=== PATIENT | female | born 1990 | race Caucasian/White ===

== ENCOUNTER 2018-08-16 13:35 | Emergency (ER) | payer MEDICAID ==
[~2018-08-16] VITALS: Wt 92.6 kg
[~2018-08-16 13:35] MED LIST: CIPR500T4 PO; CYAN100T PO; HYDR-3601 PO; TAMS-14 PO
[2018-08-16] MEDS ORDERED: KETOROLAC 30 MG INJ IV STA (17:37)
[2018-08-16] MEDS ORDERED: SOD CHLORIDE 0.9% 1,000 ML IV ONE (18:00)
[2018-08-16] MEDS ORDERED: NITR-58 PO (19:18)
[2018-08-16 19:25] VITALS: BP 134/81; PULSE 86; RESP 18
--- NOTE | 2018-08-16 23:38 | ERD ---
ER Documentation Chief Complaint Chief Complaint clinic ref: dysuria, hesitancy x2d. history of kidney stones HPI Patient is a 27-year-old man with a past medical history of hyperlipidemia and nephrolithiasis, presents to the ER for concerns of dysuria and urinary hesitancy times 2 days. Patient is referred to the ER by her provider at the [facility]. Per patient, she has had dysuria, urinary hesitancy and urinary frequency times 2 days. Patient states she was recently admitted for a kidney stone. Patient is not sure if she passed her stone. Post discharge patient was advised to follow-up with urologist however she has not yet. Patient states she was also given ciprofloxacin times 5 days. She states her symptoms are intermittently improved however they started again 2 days ago. Patient denies any fevers, chills, nausea, vomiting, flank/ abdominal pain, chest pain, or LOC. ROS All systems reviewed and are negative except as per history of present illness. Medications Home Meds Active Scripts Nitrofurantoin Monohyd Macrocr* (Macrobid*) 100 Mg Capsr, 100 MG PO BID for 5 Days, CAP Prov:DAVIDE BRAY PA-C 08/16/18 Hydrocodone Bit-Acetaminophen (Hydrocodone Bit-APAP) 5-325MG Tablet, 1 TAB PO Q6H PRN for .MOD PAIN 4-6, #15 TAB Prov:FERNANDEZMACRINA V. SPIRAL MACHINE OPERATOR 08/03/18 Tamsulosin Hcl* (Flomax*) 0.4 Mg Cap.er.24h, 0.4 MG PO BID, #30 CAP Prov:FERNANDEZ,MACRINA V. SPIRAL MACHINE OPERATOR 08/03/18 Ciprofloxacin Hcl* (Ciprofloxacin Hcl*) 500 Mg Tablet, 500 MG PO BID@06,18 for 5 Days, #10 TAB Prov:FERNANDEZGILMAA V. SPIRAL MACHINE OPERATOR 08/03/18 Reported Medications Cyanocobalamin* (Vitamin B12*) 100 Mcg Tab, 100 MCG PO DAILY, TAB 07/31/18 Allergies Allergies: Coded Allergies: No Known Allergy (Unverified , 08/16/18) PMhx/Soc Medical and Surgical Hx: pt denies Surgical Hx History of Surgery: No Anesthesia Reaction: No Hx Neurological Disorder: No Hx Respiratory Disorders: No Hx Cardiac Disorders: No Hx Psychiatric Problems: No Hx Miscellaneous Medical Probl: Yes (kidney stone, HLD) Hx Alcohol Use: No Hx Substance Use: No Hx Tobacco Use: No FmHx Family History: No diabetes, No coronary disease, No other Physical Exam Vitals Vital Signs Date Temp Pulse Resp B/P (MAP) Pulse Ox O2 O2 Flow FiO2 Time Delivery Rate 08/16/18 97.9 86 18 134/81 100 Room Air 19:25 (98) 08/16/18 98.3 101 20 146/84 96 14:25 (104) Physical Exam GENERAL: Well-developed, well-nourished female. Appears in no acute distress. HEAD: Normocephalic, atraumatic. EYES: Pupils are equally reactive bilaterally. EOMs grossly intact. No conjunctival erythema. ENT: Moist mucous membranes. No uvula deviation. No kissing tonsils. NECK: Supple. No meningismus. Normal range of motion of the neck. LUNG: Clear to auscultation bilaterally. No rhonchi, wheezing, rales or coarse breath sounds. HEART: Regular rate and rhythm. No murmurs, rubs or gallops. ABDOMEN: Soft, nontender, and nondistended. Positive bowel sounds in all four quadrants. No rebound tenderness, no guarding. (-) McBurney's point tenderness. No CVA tenderness noted bilaterally. EXTREMITIES: Equal pulses bilaterally. No peripheral clubbing, cyanosis or edema. No unilateral leg swelling. NEUROLOGIC: Alert and oriented. Moving all four extremities without any difficulty. Normal speech. Steady gait. SKIN: Normal color. Warm and dry. No rashes or lesions. Result Diagram: 08/16/18181208/16/181812 Results 24 hrs Laboratory Tests Test 08/16/18 18:13 08/16/18 18:23 White Blood Count 11.3 10^3/ul Red Blood Count 4.86 10^6/ul Hemoglobin 13.5 g/dl Hematocrit 40.9 % Mean Corpuscular Volume 84.2 fl Mean Corpuscular Hemoglobin 27.8 pg Mean Corpuscular Hemoglobin Concent 33.0 g/dl Red Cell Distribution Width 12.5 % Platelet Count 372 10^3/UL Mean Platelet Volume 8.8 fl Immature Granulocytes % 0.400 % Neutrophils % % Segmented Neutrophils % (Manual) 59 % Band Neutrophils % (Manual) 1 % Lymphocytes % % Lymphocytes % (Manual) 31 % Reactive Lymphocytes % (Manual) 2 % Monocytes % % Monocytes % (Manual) 4 % Eosinophils % % Eosinophils % (Manual) 2 % Basophils % % Basophils % (Manual) 1 % Nucleated Red Blood Cells % 0.0 /100WBC Immature Granulocytes # 0.050 10^3/ul Neutrophils # 10^3/ul Neutrophils # (Manual) 6.7 10^3/ul Band Neutrophils # 0.1 10^3/ul Lymphocytes (Manual) 3.5 10^3/ul Lymphocytes # 10^3/ul Reactive Lymphocytes # 0.2 10^3/ul Monocytes # 10^3/ul Monocytes # (Manual) 0.4 10^3/ul Eosinophils # 10^3/ul Basophils # 10^3/ul Basophils # (Manual) 0.1 10^3/ul Nucleated Red Blood Cells # 10^3/ul Platelet Estimate NORMAL Giant Platelets 1 % Poikilocytosis 1+ Anisocytosis 2+ Microcytosis 1+ Urine Color YELLOW Urine Clarity SLIGHTLY CLOUDY Urine pH 5.0 Urine Specific Ten Sleep 1.019 Urine Ketones NEGATIVE mg/dL Urine Nitrite NEGATIVE mg/dL Urine Bilirubin NEGATIVE mg/dL Urine Urobilinogen NEGATIVE mg/dL Urine Leukocyte Esterase 1+ Jannet/ul Urine Microscopic RBC > 182 /HPF Urine Microscopic WBC 17 /HPF Urine Squamous Epithelial Cells MODERATE /HPF Urine Mucus FEW /HPF Urine Hemoglobin 3+ mg/dL Urine Glucose NEGATIVE mg/dL Urine Total Protein NEGATIVE mg/dl Sodium Level 142 mmol/L Potassium Level 4.1 mmol/L Chloride Level 101 mmol/L Carbon Dioxide Level 28 mmol/L Anion Gap 13 Blood Urea Nitrogen 8 mg/dl Creatinine 0.51 mg/dl Est Glomerular Filtrat Rate mL/min > 60 mL/min Glucose Level 72 mg/dl Calcium Level 9.7 mg/dl Total Bilirubin 0.1 mg/dl Direct Bilirubin 0.00 mg/dl Indirect Bilirubin 0.1 mg/dl Aspartate Amino Transf (AST/SGOT) 38 IU/L Alanine Aminotransferase (ALT/SGPT) 53 IU/L Alkaline Phosphatase 61 IU/L Total Protein 7.6 g/dl Albumin 4.4 g/dl Globulin 3.20 g/dl Albumin/Globulin Ratio 1.37 Lipase 340 U/L POC Beta HCG, Qualitative NEGATIVE Current Medications Medications Dose Sig/Annette Start Time Status Last (Trade) Ordered Route PRN Stop Time Admin Dose Reason Admin Sodium 1,000 ml @ Q1H ONCE 08/16/18 DC 08/16/18 Chloride 1,000 mls/hr IV 18:00 18:28 08/16/18 18:59 Ketorolac 30 mg ONCE STAT 08/16/18 DC 08/16/18 Tromethamine IV 17:37 18:28 (Toradol) 08/16/18 17:40 Procedures/MDM ED COURSE: The patient was stable throughout ED course. I kept the patient and/or family informed of laboratory and diagnostic imaging results throughout the ED course. DIAGNOSTIC IMAGING: Read by radiologist. DIAGNOSTIC IMAGING REPORT Patient: ECTOR GONZALEZ : 1990 Age: 27 Sex: F MR #: [id number] DOS: 08/16/18 1738 Ordering MD: DAVIDE BRAY PA-C Location: [facility] Room/Bed: PROCEDURE: US Retroperitoneal Limited, Renal CLINICAL INDICATION: Flank pain. TECHNIQUE: Real-time ultrasound of the retroperitoneum (limited) with image documentation. COMPARISON: None FINDINGS: RIGHT KIDNEY: Right kidney measures 11.1 cm in length. No renal cyst, mass, c alculus, or hydronephrosis. LEFT KIDNEY: Left kidney measures 12.7 cm in length. No renal cyst, mass, calculus, or hydronephrosis. BLADDER: Urinary bladder appears unremarkable. IMPRESSION: Unremarkable renal ultrasound examination. RPTAT: [facility] Nataliia Gil Physician Date Time Electronically viewed and signed by Nataliia Gil Physician Dental Equipment Mechanic on 08/16/2018 18:34 RmC/ CC: DAVIDE BRAY PA-C [id number] PROCEDURES: None. MEDICATIONS GIVEN: IV fluids, Toradol Patient tolerated medication well with no adverse reactions. Patient reported improvement in pain. MEDICAL DECISION MAKING: This is a 27-year-old female with a past medical history of nephrolithiasis, presents the ER for concerns of dysuria, frequency and urinary hesitancy times 2 days. Patient did recently complete a course of ciprofloxacin. Patient stated symptoms started after completing ciprofloxacin. Vital signs were reviewed. Patient was afebrile. Patient is not hypoxic. Review of the patient's medical record shows that patient was admitted at this facility on 07-31-18 for a right sided obstructing 4 mm calculus at the right ureter pelvic junction, moderate right hydronephrosis. Findings were noted on a CT scan. Follow-up KUB x-rays were obtained which did not note the previously seen calculus on exam. Patient states she is not sure if she had passed the stone. On exam today, patient did not have any flank pain. IV line was established. Blood work was obtained. WBC count is noted to be 11.3. Note patient's hemoglobin levels downtrending from previous visit. On 07-31-18, patient's CBC count was noted to be 16.3. Hemoglobin and hematocrit within normal limits today. CMP showed no severe electrolyte abnormalities, acidosis, alkalosis, renal failure. Lipase was noted to be 340 however not 3 times normal value. No evidence of acute peritonitis at this time. Urine test was negative. UA did show 1+ leukocyte esterase with 14 WBCs. Given that patient did have recent CT imaging, CT imaging studies were deferred at today's visit due to the risk of radiation. Renal ultrasound was unremarkable. No renal cyst, mass, calculus or hydronephrosis is noted bilaterally. At this time, patient presentation is most consistent with UTI. Patient will be treated with course of Macrobid. Given the patient did recently complete a course of ciprofloxacin, urine culture will be sent. Results are pending at this time. Patient was advised to follow-up with urologist on outpatient basis. Strict ER precautions given. Low suspicion for renal mass, nephrolithiasis, pyelonephritis, hydronephrosis, urosepsis, appendicitis, , ectopic , diverticulitis, ovarian torsion or tubo ovarian abscess. Patient was nontoxic, nonill-appearing prior to discharge. Patient was given copy of all blood work and imaging studies obtained today. PRESCRIPTIONS: Macrobid DISCHARGE: At this time, patient is stable for discharge and outpatient management. I have instructed the patient to follow-up with his/her primary care physician in 1-2 days. If symptoms persist, patient may need to see a specialist for further examinations and testing. I have instructed the patient to promptly return to the ER at any time for any new or worsening symptoms including increased increased pain, fever, nausea, vomiting, urinary changes or weakness. The patient and/or family expressed understanding of and agreement with this plan. All questions were answered. Home care instructions were provided. Disclaimer: Inadvertent spelling and grammatical errors are likely due to EHR/dictation software use and do not reflect on the overall quality of patient care. Also, please note that the electronic time recorded on this note does not necessarily reflect the actual time of the patient encounter. Departure Diagnosis: Primary Impression: UTI (urinary tract infection) Urinary tract infection type: site unspecified Hematuria presence: with hematuria Qualified Codes: N39.0 - Urinary tract infection, site not specified; R31.9 - Hematuria, unspecified Condition: Stable Patient Instructions: Understanding Urinary Tract Infections (UTIs) Referrals: [facility] YOU HAVE RECEIVED A MEDICAL SCREENING EXAM AND THE RESULTS INDICATE THAT YOU DO NOT HAVE A CONDITION THAT REQUIRES URGENT TREATMENT IN THE EMERGENCY DEPARTMENT. FURTHER EVALUATION AND TREATMENT OF YOUR CONDITION CAN WAIT UNTIL YOU ARE SEEN IN YOUR DOCTORS OFFICE WITHIN THE NEXT 1-2 DAYS. IT IS YOUR RESPONSIBILITY TO MAKE AN APPOINTMENT FOR FOLOW-UP CARE. IF YOU HAVE A PRIMARY DOCTOR --you should call your primary doctor and schedule an appointment IF YOU DO NOT HAVE A PRIMARY DOCTOR YOU CAN CALL OUR PHYSICIAN REFERRAL HOTLINE AT IF YOU CAN NOT AFFORD TO SEE A PHYSICIAN YOU CAN CHOSE FROM THE FOLLOWING [facility] [address] [facility]. [facility] [address] [facility]. [facility] [address] [facility] [address] [facility] [facility] [address] [facility]. [facility]. [address] [facility]. [facility] YOU HAVE RECEIVED A MEDICAL SCREENING EXAM AND THE RESULTS INDICATE THAT YOU DO NOT HAVE A CONDITION THAT REQUIRES URGENT TREATMENT IN THE EMERGENCY DEPARTMENT. FURTHER EVALUATION AND TREATMENT OF YOUR CONDITION CAN WAIT UNTIL YOU ARE SEEN IN YOUR DOCTORS OFFICE WITHIN THE NEXT 1-2 DAYS. IT IS YOUR RESPONSIBILITY TO MAKE AN APPOINTMENT FOR FOLOW-UP CARE. IF YOU HAVE A PRIMARY DOCTOR --you should call your primary doctor and schedule and appointment IF YOU DO NOT HAVE A PRIMARY DOCTOR YOU CAN CALL OUR PHYSICIAN REFERRAL HOTLINE AT . IF YOU CAN NOT AFFORD TO SEE A PHYSICIAN YOU CAN CHOSE FROM THE FOLLOWING [facility] INSTITUTIONS: [facility] [address] [place] [address] [facility] [address] [place] [address] [facility] [address] [place] [address] Additional Instructions: Llame al doctor MAANA y satish marcela MARIA M PARA DENTRO DE 1-2 GEE.Dgale a la secretaria que nosotros le instruimos hacer esta maria m.Avise o llame si kwon condicin se empeora antes de la maria m. Regresa aqui si peor o no mejor. DAVIDE BRAY PA-C Aug 16, 2018 23:30
== END 2018-08-16 19:55 | disposition home or self-care (01) ==
LOC: FTE 13:35
DX: N39.0 Urinary tract infection, site not specified (principal)
CPT/HCPCS: 36415; 76775; 80053; 81001; 81025; 83690; 85025; 87086; 96361; 96374; J1885; J7030; Z7502